=== PATIENT | male | born 1970 | race American Indian/Alaskan Native ===

== ENCOUNTER 2016-12-27 17:44 | Observation (INO) | payer MEDICAID ==
--- NOTE | 2016-12-27 18:36 | C.PDOC ---
History Of Present Illness 46 year old male presents to the ED with complaints of sudden onset of chest pressure "around the heart" while walking with diaphoresis. Patient notes slight SOB, upon symptoms he sat and called 911, and pain slowly began to resolve post meds. He denies any prior history of chest pain, medical problem , heart conditions, at this time. Time Seen by Provider: 12/27/16 18:24 Chief Complaint (Nursing): Chest Pain History Per: Patient History/Exam Limitations: no limitations Onset/Duration Of Symptoms: Hrs Current Symptoms Are (Timing): Still Present (slight chest pain) Quality: Pressure, "Pain" Associated Symptoms: Dyspnea, Diaphoresis. denies: Nausea, Syncope Past Medical History Reviewed: Historical Data, Nursing Documentation, Vital Signs Vital Signs: Last Vital Signs Temp 98.5 F 12/28/16 08:27 Pulse 58 L 12/28/16 08:27 Resp 20 12/28/16 08:27 BP 110/70 12/28/16 08:27 Pulse Ox 97 12/28/16 08:27 - Medical History PMH: No Chronic Diseases Family History: States: Unknown Family Hx - Social History Hx Tobacco Use: Yes Hx Alcohol Use: Yes Hx Substance Use: No Review Of Systems Constitutional: Negative for: Fever, Chills, Sweats Cardiovascular: Positive for: Chest Pain Respiratory: Positive for: Shortness of Breath (slight ) Gastrointestinal: Negative for: Nausea, Vomiting, Abdominal Pain, Diarrhea Musculoskeletal: Negative for: Neck Pain, Shoulder Pain, Back Pain Physical Exam - Physical Exam Appears: Non-toxic, No Acute Distress Skin: Warm, Dry Oral Mucosa: Moist Neck: Normal ROM, Supple Chest: Symmetrical, Tenderness (tenderness over left anterior chest wall ) Cardiovascular: Rhythm Regular, No Murmur Respiratory: No Rales, No Rhonchi, No Stridor, No Wheezing Gastrointestinal/Abdominal: Soft, No Tenderness, No Guarding Extremity: Normal ROM, No Pedal Edema Neurological/Psych: Oriented x3, Normal Speech, Normal Cognition ED Course And Treatment - Laboratory Results Result Diagrams: 12/27/16 18:40 12/27/16 18:40 ECG: Interpreted By Me ECG Rhythm: Sinus Rhythm ECG Interpretation: No Acute Changes Interpretation Of ECG: voltage for LVH Rate From EC O2 Sat by Pulse Oximetry: 100 - Radiology CXR: Interpreted by Me CXR Interpretation: Yes: No Acute Disease Medical Decision Making Medical Decision Making: CP resolved while in the ED Labs cxr unremarkable but EKG with LVH, BP ok in ED but post ntg In view of hx age smoking observation vs op w/u discussed with pt Plan observation, discussed with dr Mills who agrees with plan Disposition - Disposition Disposition: HOSPITALIZED Disposition Time: 00:00 Condition: GOOD - Clinical Impression Clinical Impression: Chest pain - Scribe Statement The provider has reviewed the documentation as recorded by the Scribleonie Palomares All medical record entries made by the Venkateshibleonie were at my direction and personally dictated by me. I have reviewed the chart and agree that the record accurately reflects my personal performance of the history, physical exam, medical decision making, and the department course for this patient. I have also personally directed, reviewed, and agree with the discharge instructions and disposition. Decision To Admit - Pt Status Changed To: Hospital Disposition Of: Observation - . Bed Request Type: Telemetry Admitting Physician: Karl Jacobson Patient Diagnosis: Chest pain
[2016-12-27 18:42] LABS: BASO % 0.4 % (0.0-2.0); EOS % 0.7 % (0.0-4.0); HEMATOCRIT 40.8 % (35.0-51.0); LYMPH # 1.2 K/uL (1.0-4.3); LYMPH % 17.7 % (20.0-40.0); MEAN CELL VOLUME 91.5 fL (80.0-94.0); MEAN CORPUSCULAR HEMOGLOBIN 30.3 pg (27.0-31.0); MEAN CORPUSCULAR HGB CONC 33.1 g/dL (33.0-37.0); MEAN PLATELET VOLUME 8.5 fL (7.2-11.7); MONO # 0.5 K/uL (0.0-0.8); MONO % 6.9 % (0.0-10.0); RED CELL DISTRIBUTION WIDTH 13.9 % (11.5-14.5); WHITE BLOOD COUNT 6.8 K/uL (4.8-10.8)
[2016-12-27 18:53] LABS: CHLORIDE 103 mmol/L (98-107)
[2016-12-27 18:54] LABS: POTASSIUM 3.7 mmol/L (3.6-5.2); SODIUM 142 mmol/L (132-148)
[2016-12-27 18:56] LABS: ALB/GLOB RATIO 1.6 (1.0-2.1); AST/SGOT 31 U/L (17-59); BILIRUBIN,TOTAL 0.9 mg/dL (0.2-1.3); BLOOD UREA NITROGEN 10 mg/dL (9-20); CARBON DIOXIDE 26 mmol/L (22-30); GFR AFRICAN-AMERICAN > 60; TOTAL PROTEIN 7.3 g/dL (6.3-8.3)
[2016-12-27 18:57] LABS: ALKALINE PHOSPHATASE 55 U/L (38-126); ALT/SGPT 38 U/L (21-72); CALCIUM 8.9 mg/dl (8.6-10.4); GLUCOSE,RANDOM 92 mg/dL (75-110)
[2016-12-27] MEDS ORDERED: Nitroglycerin 2% Ointment Foilpak UD TOP PRN (21:00)
--- NOTE | 2016-12-27 21:29 | RAD ---
HISTORY: chest pain COMPARISON: None available. TECHNIQUE: Chest PA and lateral FINDINGS: LUNGS: Hyperinflation. No focal consolidation. Please note that chest x-ray has limited sensitivity for the detection of pulmonary masses. PLEURA: No significant pleural effusion identified. No definite pneumothorax . CARDIOVASCULAR: The cardiomediastinal silhouette appears within normal limits of size. OSSEOUS STRUCTURES: No acute osseous abnormality identified. VISUALIZED UPPER ABDOMEN: Unremarkable. OTHER FINDINGS: None. IMPRESSION: Hyperinflation. No focal consolidation, significant pleural effusion, or definite pneumothorax identified.
--- NOTE | 2016-12-28 03:30 | CP.PCM.CON ---
History of Present Illness - History of Present Illness History of Present Illness: 46 year old male with no cardiac history felt chest pressue with diaphoresis and came to the emergency depart ment. Pt denied sob ,nausea sob ekg unremarkable now no chest pain Review of Systems - Review of Systems Systems not reviewed;Unavailable: Acuity of Condition - Constitutional Constitutional: absent: Sleep Apnea - EENT Eyes: absent: Change in Vision Nose/Mouth/Throat: absent: Nasal Discharge - Cardiovascular Cardiovascular: absent: Chest Pain - Respiratory Respiratory: absent: Dyspnea on Exertion - Gastrointestinal Gastrointestinal: absent: Abdominal Pain - Genitourinary Genitourinary: absent: Dysuria - Musculoskeletal Musculoskeletal: absent: Back Pain - Integumentary Integumentary: absent: Dry Skin - Neurological Neurological: absent: Abnormal Hearing - Psychiatric Psychiatric: absent: Anxiety - Endocrine Endocrine: absent: Fatigue - Hematologic/Lymphatic Hematologic: absent: Easy Bleeding Past Patient History - Past Medical History & Family History Past Medical History?: Yes - Past Social History Smoking Status: Current Some Days Smoker - INTEGUMENTARY Hx Eczema: Yes - MUSCULOSKELETAL/RHEUMATOLOGICAL Hx Falls: No - PSYCHIATRIC Hx Substance Use: No - SURGICAL HISTORY Hx Surgeries: No Other/Comment: Lymph node biopsy 15 years ago - ANESTHESIA Hx Anesthesia: Yes Hx Anesthesia Reactions: No Hx Malignant Hyperthermia: No Has any member of the family had a problem w/ anesthesia?: No Meds Allergies/Adverse Reactions: Allergies Allergy/AdvReac Type Severity Reaction Status Date / Time No Known Allergies Allergy Unverified 12/27/16 17:56 - Medications Medications: Current Medications Aspirin (Aspirin) 325 mg PO DAILY [facility] Metoprolol Tartrate (Lopressor) 25 mg PO BID [facility] Nitroglycerin (Nitro-Bid 2% Oint) 1 ea TOP Q6H PRN PRN Reason: Other Last Admin: 12/27/16 22:42 Dose: 1 ea Physical Exam - Constitutional Appears: Well - Head Exam Head Exam: NORMOCEPHALIC - Eye Exam Eye Exam: Normal appearance - ENT Exam ENT Exam: Mucous Membranes Moist - Respiratory Exam Respiratory Exam: NORMAL BREATHING PATTERN - Cardiovascular Exam Cardiovascular Exam: REGULAR RHYTHM - GI/Abdominal Exam GI & Abdominal Exam: Normal Bowel Sounds - Exam External exam: NORMAL EXTERNAL EXAM - Extremities Exam Extremities exam: Positive for: normal inspection - Neurological Exam Neurological exam: Alert - Psychiatric Exam Psychiatric exam: Normal Mood - Skin Skin Exam: Warm Results - Vital Signs Recent Vital Signs: Last Vital Signs Temp 98.1 F 12/27/16 23:45 Pulse 58 L 12/27/16 23:58 Resp 20 12/27/16 23:45 BP 100/57 L 12/27/16 23:45 Pulse Ox 96 12/27/16 23:45 - Labs Result Diagrams: 12/27/16 18:40 12/27/16 18:40 Assessment & Plan (1) Chest pressure Assessment and Plan: We will get cardiac enzymes x 3 echo atypical chest pressue resolved now Status: Acute
[2016-12-28 04:17] LABS: THYROID STIMULATING HORMONE 1.57 mIU/L (0.46-4.68)
[2016-12-28 07:59] LABS: URINE BILIRUBIN NEGATIVE (NEGATIVE); URINE BLOOD NEGATIVE (NEGATIVE); URINE COLOR Yellow (YELLOW); URINE GLUCOSE (UA) NORMAL (Normal); URINE KETONE TRACE mg/dL (NEGATIVE); URINE LEUKOCYTE ESTERASE NEG Leu/uL (Negative); URINE PROTEIN NEGATIVE (NEGATIVE); WBC URINE 1 /hpf (0-5)
--- NOTE | 2016-12-28 11:33 | CP.PCM.PN ---
Subjective - Date & Time of Evaluation Date of Evaluation: 12/28/16 Time of Evaluation: 11:00 - Subjective Subjective: H&P dictated #[id number] Objective - Vital Signs/Intake and Output Vital Signs (last 24 hours): Temp Pulse Resp BP Pulse Ox 98.5 F 58 L 20 110/70 97 12/28/16 08:27 12/28/16 08:27 12/28/16 08:27 12/28/16 08:27 12/28/16 08:27 Intake and Output: 12/28/16 12/28/16 06:59 18:59 Intake Total 240 Balance 240 - Medications Medications: Current Medications Aspirin (Aspirin) 325 mg PO DAILY [facility] Last Admin: 12/28/16 11:02 Dose: 325 mg Metoprolol Tartrate (Lopressor) 25 mg PO BID [facility] Last Admin: 12/28/16 11:02 Dose: Not Given Nitroglycerin (Nitro-Bid 2% Oint) 1 ea TOP Q6H PRN PRN Reason: Other Last Admin: 12/27/16 22:42 Dose: 1 ea
[2016-12-28 12:48] LABS: CHOLESTEROL 147 mg/dL (0-199)
--- NOTE | 2016-12-28 16:55 | HP ---
CHIEF COMPLAINT: Retrosternal chest pain started while he was walking, got better with nitroglycerin. HISTORY OF PRESENT ILLNESS: The patient is a 46-year-old male with no significant past medical history other than smoking and no other family history of coronary artery disease, came in to the ED with complaints of left-sided chest pain associated with shortness of breath as he was walking yesterday. He denied any other associated symptoms of dizziness, nausea, vomiting, diaphoresis. Denied any radiation of the pain. The pain was squeezing in nature, nonradiating and it was 5/10 when he had this pain. He also felt anxious and nervous as he has been going through some stressful situation in his life as he used to live [place]. He is not following the rules, so he was not allowed to go back to the penitentiary. He has been walking longer hours, lifting heavy weights. He has been staying with a partner, which has not been working out well. He is stressed out about his living situation and work. When he had these symptoms, he went into a restaurant and rested. His pain persisted and increased at which point 911 was called and patient was given nitroglycerin with which his symptoms improved. He was brought into the Emergency Room. In the ED, he remained chest pain free. When I examined him, he denies any headache, dizziness. Denies any chest pain, shortness of breath or wheezing. Denies any nausea, vomiting, abdominal pain, diarrhea or constipation. Denies any urinary complaints. Denies any leg pains or leg cramps. Denies any other neurologic symptoms. PAST MEDICAL HISTORY: Denies any past medical history. PAST SURGICAL HISTORY: He underwent a biopsy of a lymph node many years ago, which was negative. FAMILY HISTORY: Hypertension in father. Mother is healthy. Grandmother from CVA. PERSONAL HISTORY: He is single, no children. Lives in penitentiary. SOCIAL HISTORY: Denies any drug abuse. Drinks alcohol socially. He smokes cigars 2-3 per day. ALLERGIES: No known drug allergies. MEDICATIONS AT HOME: None. REVIEW OF SYSTEMS: As described in history of present illness. All other systems reviewed and were found to be negative. PHYSICAL EXAMINATION: GENERAL: A young male lying in bed in no acute distress. VITAL SIGNS: Blood pressure 110/70, pulse 58, respirations 20, temperature 98.3 degrees Fahrenheit, O2 sats 97% on room air. HEENT: Pupils equal, round, reacting to light and accommodation. Extraocular muscles intact. No icterus, no pallor, no oral thrush. No pharyngeal congestion. NECK: Supple. No JVD, no thyromegaly. CHEST: Moving equally bilaterally on respiration. LUNGS: Bilateral vesicular breath sounds. No wheezes or rhonchi. CARDIOVASCULAR: S1, S2 present, regular. ABDOMEN: Soft, nontender. Bowel sounds present. No guarding, no rigidity, no rebound tenderness noted. CENTRAL NERVOUS SYSTEM: Alert, awake, oriented x 3. No focal deficits noted. EXTREMITIES: No edema. Palpable peripheral pulses. LABORATORY DATA: Labs done from the ED: WBC 6.8, hemoglobin 13.5, hematocrit 40.8, platelets 166. Sodium 142, potassium 3.7, chloride 103, bicarbonate 26, BUN 10, creatinine 1.0, glucose 92, calcium 8.9, total bilirubin is 0.9, AST 31 , ALT 38, alkaline phosphatase 55. CPK 278, troponin less than 0.01, total protein 7.3, albumin 4.5. TSH 1.57. UA specific gravity 1.025, pH 6.0, otherwise negative. EKG consistent with normal sinus rhythm, LVH. Chest x-ray : Hyperinflation, no focal consolidation, significant pleural effusion, no definite pneumothorax identified. ASSESSMENT AND PLAN: A young male with no significant past medical history who has been undergoing stressful situations with his living conditions, has been working more, lifting heavy weights, came into the Emergency Room with sudden onset of retrosternal chest pressure associated with anxiety and shortness of breath and questionable diaphoresis. All the symptoms got better after rest and after getting nitroglycerin and the patient is being admitted for further management. Chest pain in a patient with no significant risk factors other than smoking. Rule out secondary to anxiety, rule out acute coronary syndrome, rule out other cardiac causes. PLAN: The patient is being admitted to cardiac telemetry. We will do serial cardiac enzymes and serial EKGs. We will check echocardiogram. We will check lipid profile. We will obtain cardiology evaluation. We will give aspirin 325 mg p.o. daily, Lopressor 25 mg p.o. q. 12 hours with holding parameters. Follow up with cardiology. We will add further recommendation as his clinical course progresses. Karl Jacobson MD cc: [id number] TT: 12/28/2016 16:55:21 [facility] # [id number] dn MTDD
[2016-12-29 01:12] VITALS: RESP 20
[2016-12-29] MEDS ORDERED: Enoxaparin 40 mg Syringe SC SCH (10:00)
--- NOTE | 2016-12-29 10:44 | CARD ---
APPROVED REPORT EXAM: Two-dimensional and M-mode echocardiogram with Doppler and color Doppler. Other Information Quality : GoodRhythm : NSR INDICATION Chest Pain RISK FACTORS Hypertension Hyperlipidemia M-Mode DIMENSIONS RVDd2.28 (2.1-3.2cm)Left Atrium (MM)3.22 (2.5-4.0cm) IVSd1.14 (0.7-1.1cm)Aortic Root2.64 (2.2-3.7cm) LVDd4.75 (4.0-5.6cm)Aortic Cusp Exc.2.25 (1.5-2.0cm) PWd1.20 (0.7-1.1cm)FS (%) 29 % LVDs3.35 (2.0-3.8cm)LVEF (%)56 (>50%) Aortic Valve AoV Peak Kvfdgbrx108.6cm/Griselda Peak GR.5mmHg Mitral Valve MV E Weykjduq68.5cm/sMV A Syhxdgjs80.9cm/sE/A ratio3.0 TDI E/Lateral E'0.0E/Medial E'0.0 Tricuspid Valve TR Peak Fsygmosy990sx/sTR Peak Gr.[id number] LEFT VENTRICLE The left ventricle is normal size. There is normal left ventricular wall thickness. The left ventricular function is normal. The left ventricular ejection fraction is within the normal range. The Ejection Fraction is >55%. No regional wall motion abnormalities noted. The left ventricular diastolic function is normal. No left ventricle thrombus noted on this study. There is no ventricular septal defect visualized. There is no left ventricular aneurysm. There is no mass noted in the left ventricle. RIGHT VENTRICLE The right ventricle is normal size. There is normal right ventricular wall thickness. The right ventricular systolic function is normal. ATRIA The left atrium size is normal. The right atrium size is normal. The interatrial septum is intact with no evidence for an atrial septal defect. AORTIC VALVE The aortic valve is normal in structure and function. There is trace aortic regurgitation. There is no aortic valvular stenosis. There is no aortic valvular vegetation. MITRAL VALVE The mitral valve is normal in structure and function. There is no evidence of mitral valve prolapse. There is no mitral valve stenosis. There is no mitral valve regurgitation noted. TRICUSPID VALVE The tricuspid valve is normal in structure and function. There is trace tricuspid regurgitation. Right ventricular systolic pressure is estimated at 30-40 mmHg. There is mild pulmonary hypertension. There is no tricuspid valve prolapse or vegetation. There is no tricuspid valve stenosis. PULMONIC VALVE The pulmonary valve is normal in structure and function. There is no pulmonic valvular regurgitation. There is no pulmonic valvular stenosis. GREAT VESSELS The aortic root is normal in size. The ascending aorta is normal in size. The pulmonary artery is normal. The IVC is normal in size and collapses >50% with inspiration. PERICARDIAL EFFUSION The pericardium appears normal. There is no pleural effusion. <Conclusion> The left ventricular ejection fraction is within the normal range. The Ejection Fraction is >55%. There is trace aortic regurgitation. There is trace tricuspid regurgitation. Right ventricular systolic pressure is estimated at 30-40 mmHg. There is mild pulmonary hypertension.
--- NOTE | 2016-12-29 12:16 | CP.PCM.PN ---
Subjective - Date & Time of Evaluation Date of Evaluation: 12/29/16 Time of Evaluation: 12:10 - Subjective Subjective: discharge summary dictated # [id number] Objective - Vital Signs/Intake and Output Vital Signs (last 24 hours): Temp Pulse Resp BP Pulse Ox 98.3 F 52 L 20 92/53 L 97 12/29/16 09:01 12/29/16 09:01 12/29/16 09:01 12/29/16 09:01 12/29/16 09:01 - Medications Medications: Current Medications Aspirin (Aspirin) 325 mg PO DAILY [facility] Last Admin: 12/29/16 10:23 Dose: 325 mg Enoxaparin Sodium (Lovenox) 40 mg SC DAILY [facility] Last Admin: 12/29/16 10:23 Dose: 40 mg Metoprolol Tartrate (Lopressor) 25 mg PO BID [facility] Last Admin: 12/29/16 10:25 Dose: Not Given Nitroglycerin (Nitro-Bid 2% Oint) 1 ea TOP Q6H PRN PRN Reason: Other Last Admin: 12/27/16 22:42 Dose: 1 ea
--- NOTE | 2016-12-29 12:43 | CARD ---
APPROVED REPORT EKG Measurement Heart [id number] <Conclusion> Sinus rhythm with occasional premature ventricular complexes Voltage criteria for left ventricular hypertrophy Abnormal ECG
--- NOTE | 2016-12-29 13:36 | CP.PCM.PN ---
<GildardoVini - Last Filed: 12/29/16 18:08> Subjective - Date & Time of Evaluation Date of Evaluation: 12/29/16 Time of Evaluation: 13:29 - Subjective Subjective: Cardiology Progress Note Dr. Wright Patient seen and examined at the bedside. No acute distress. No acute events overnight. Nursing staff reports no issues. The patient is resting comfortably in bed this morning. The patient reports resolution of his chest pain. The patient denies all cardiopulmonary complaints. 12 point review of system was completed, and the patient denies all present complaints. Objective - Vital Signs/Intake and Output Vital Signs (last 24 hours): Temp Pulse Resp BP Pulse Ox 98.3 F 52 L 20 92/53 L 97 12/29/16 09:01 12/29/16 09:01 12/29/16 09:01 12/29/16 09:01 12/29/16 09:01 - Medications Medications: Current Medications Aspirin (Aspirin) 325 mg PO DAILY [facility] Last Admin: 12/29/16 10:23 Dose: 325 mg Enoxaparin Sodium (Lovenox) 40 mg SC DAILY [facility] Last Admin: 12/29/16 10:23 Dose: 40 mg Metoprolol Tartrate (Lopressor) 25 mg PO BID [facility] Last Admin: 12/29/16 10:25 Dose: Not Given Nitroglycerin (Nitro-Bid 2% Oint) 1 ea TOP Q6H PRN PRN Reason: Other Last Admin: 12/27/16 22:42 Dose: 1 ea - Constitutional Appears: Well, No Acute Distress - Head Exam Head Exam: ATRAUMATIC, NORMAL INSPECTION, NORMOCEPHALIC - Eye Exam Eye Exam: EOMI, Normal appearance Pupil Exam: NORMAL ACCOMODATION - ENT Exam ENT Exam: Mucous Membranes Moist, Normal Exam - Neck Exam Neck Exam: Full ROM, Normal Inspection. absent: Lymphadenopathy - Respiratory Exam Respiratory Exam: Clear to Ausculation Bilateral, NORMAL BREATHING PATTERN. absent: Rhonchi, Wheezes - Cardiovascular Exam Cardiovascular Exam: REGULAR RHYTHM, RRR, +S1, +S2. absent: Diastolic murmur, Murmur - GI/Abdominal Exam GI & Abdominal Exam: Soft, Normal Bowel Sounds. absent: Firm, Guarding, Rigid, Tenderness - Extremities Exam Extremities Exam: Full ROM, Normal Capillary Refill, Normal Inspection. absent : Joint Swelling, Pedal Edema - Back Exam Back Exam: NORMAL INSPECTION. absent: CVA tenderness (L), CVA tenderness (R) - Neurological Exam Neurological Exam: Alert, Awake, CN II-XII Intact, Oriented x3 - Skin Skin Exam: Dry, Intact, Normal Color, Warm Assessment and Plan (1) Chest pain Assessment & Plan: Troponin negative x 3 12/28/16 Echo- LV EF 56%, mild pulmonary hypertension, no regional wall abnormalities 12/27/16 EKG- normal sinus rhythm, physiologic axis, normal intervals, no ST or T wave abnormalities, voltage criteria for LVH, PVCs noted 12/27/16 CXR- no acute pulmonary pathology Hold beta roro if pulse <60bpm or SBP <100mmHg Patient was recommended to follow up with Dr. Wright in his office/clinic for further cardiac follow up No cardiac intervention at this time Case Discussed with Dr. Kyle Ewing PGY1 Status: e <Fredo Wright - Last Filed: 01/28/17 10:17> Objective - Vital Signs/Intake and Output Vital Signs (last 24 hours): Temp Pulse Resp BP Pulse Ox 98 F 53 L 20 102/63 98 12/29/16 16:00 12/29/16 16:00 12/29/16 16:00 12/29/16 16:00 12/29/16 16:00 Attending/Attestation - Attestation I have personally seen and examined this patient.: Yes I have fully participated in the care of the patient.: Yes I have reviewed all pertinent clinical information, including history, physical exam and plan: Yes Notes (Text): 01/28/17 10:16 Pt no issues overnight echo nl follow up as outpt
--- NOTE | 2016-12-29 16:27 | CP.PCM.PN ---
Subjective - Date & Time of Evaluation Date of Evaluation: 12/29/16 Time of Evaluation: 16:28 - Subjective Subjective: alert and orientedx3, NAD. Objective - Vital Signs/Intake and Output Vital Signs (last 24 hours): Temp Pulse Resp BP Pulse Ox 98.3 F 52 L 20 92/53 L 97 12/29/16 09:01 12/29/16 09:01 12/29/16 09:01 12/29/16 09:01 12/29/16 09:01 - Medications Medications: Current Medications Aspirin (Aspirin) 325 mg PO DAILY [facility] Last Admin: 12/29/16 10:23 Dose: 325 mg Enoxaparin Sodium (Lovenox) 40 mg SC DAILY [facility] Last Admin: 12/29/16 10:23 Dose: 40 mg Metoprolol Tartrate (Lopressor) 25 mg PO BID [facility] Last Admin: 12/29/16 10:25 Dose: Not Given Nitroglycerin (Nitro-Bid 2% Oint) 1 ea TOP Q6H PRN PRN Reason: Other Last Admin: 12/27/16 22:42 Dose: 1 ea Assessment and Plan - Assessment and Plan (Free Text) Assessment: Patient is seen and examined. Denies sob or chest pains. Cleared by cardiology, ruled out RI. Discharge home by DR Cramer, advised to follow up with PMD and cardiology for further work ups.
[2016-12-29 17:07] VITALS: BP 102/63; PULSE 53; TEMP 98; O2SAT 98
--- NOTE | 2016-12-29 21:01 | DS ---
DISCHARGE DIAGNOSES: Atypical chest pain, anxiety. HISTORY OF PRESENT ILLNESS: The patient is a 46-year-old male with no significant past medical histo ry, admitted to the hospital with left-sided chest pain associated with anxiety and patient was admit rodrigo for chest pain, rule out myocardial infarction. Today, the patient is feeling much better. Felix es any headache, dizziness. Denies any chest pain, shortness of breath or wheezing. Denies any naus ea, vomiting, abdominal pain, diarrhea or constipation. Denies any urinary complaints. Denies any l eg pains or leg cramps. Denies any other neurologic symptoms. Other systems reviewed and were found to be negative. PHYSICAL EXAMINATION: GENERAL: Young male lying in bed in no acute distress. VITAL SIGNS: Blood pressure 102/63, pulse 53, respirations 20, temperature 98 degrees Fahrenheit, O2 sat is 98% on room air. HEENT: Pupils equal, round, reacting to light and accommodation. Extraocular muscles intact. No ic terus, no pallor. No oral thrush. No pharyngeal congestion. No nasal congestion. NECK: Supple. No JVD, no thyromegaly. CHEST: Moving equally bilaterally on respiration. LUNGS: Bilateral vesicular breath sounds. No wheezing, no rhonchi. CARDIOVASCULAR: S1, S2 present, regular. ABDOMEN: Soft, nontender. Bowel sounds present. No guarding, no rigidity, no rebound tenderness no rodrigo. CENTRAL NERVOUS SYSTEM: Alert, awake, oriented x 3. No focal deficits noted. EXTREMITIES: No edema. Palpable peripheral pulses. LABORATORY: Improved triglycerides 44, cholesterol 147, LDL 51, HDL 77, and TSH 1.57. UA negative, cardiac enzymes x 3 negative. WBC 6.8, hemoglobin 13.5, hematocrit 40.8, platelets 166. Sodium 142, potassium 3.7, chloride 103, bicarbonate 26, BUN 10, creatinine 1.0, glucose 92, calcium 8.9, total bilirubin is 0.9, AST 31, ALT 38, alkaline phosphatase 55, total protein 7.3, albumin 4.5, globulin 2 .90. Echo with normal EF. Chest x-ray: Negative. HOSPITAL COURSE: The patient was admitted to the hospital. The patient was ruled out for acute OH. No new EKG changes. Three sets of cardiac enzymes negative. Echocardiogram with normal LV function . The patient was evaluated by cardiology and the patient is cleared by cardiology for discharge to be followed up in his office for further cardiac workup as outpatient. As the patient is feeling muc h better and hemodynamically stable, cleared by cardiology, the patient is being discharged. I advis ed patient to follow up with PMD and follow up with cardiology. CONDITION UPON DISCHARGE: The patient is alert, awake, oriented x 3 and hemodynamically stable at th e time of discharge. DISCHARGE INSTRUCTIONS: Follow up with PMD, follow up with cardiology for further cardiac workup as outpatient. DISCHARGE MEDICATIONS: None. ACTIVITY: As tolerated. DIET: Heart healthy diet. Karl Jacobson MD cc: [id number] TT: 12/29/2016 21:00:28 jn
== END 2016-12-29 18:10 | disposition home or self-care (01) ==
LOC: C.ER 17:44 → C.9E 20:24 → C.6T 20:35
PROVIDERS: ADMIT Internal Medicine; ATTEND Internal Medicine
DX: R07.89 Other chest pain (principal); F41.9 Anxiety disorder, unspecified; Z68.23 Body mass index [BMI] 23.0-23.9, adult; F17.290 Nicotine dependence, other tobacco product, uncomplicated
CPT/HCPCS: 36415; 71020; 80053; 80061; 81001; 82948; 84443; 84484; 85025; 93005; 93306; 99285; G0378; J1650

== ENCOUNTER 2017-08-07 16:06 | Emergency (ER) | payer MEDICAID, OTHER ==
[2017-08-07] MEDS ORDERED: Epinephrine /Lidocaine HCL 1:100,000/2% 30 ml INJ PRN (18:16)
[2017-08-07] MEDS ORDERED: Lidocaine 2% w Epi 1:100,000 Inj IJ ONE (19:29)
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
[2017-08-07 20:28] VITALS: BP 115/71; PULSE 94; RESP 16; TEMP 97.8
[2017-08-07 20:39] VITALS: O2SAT 100
[2017-08-07] MEDS ORDERED: Bacitracin 500 Units/gm Oint Foilpak UD ONE (20:41)
--- NOTE | 2017-08-07 21:24 | PCM.PROC ---
Procedures Attestation:: I certify that I have explained the specified Operation(s) or Procedure(s), risks, benefits and reasonable alternatives to the Patient and/or other person responsible. The opportunity was given to ask questions and all questions answered - Laceration lidocaine 1% involves muscle layer contaminated deep structures intact scalp 6-0 vicryl local infiltration simple, interrupted simple, interrupted simple, interrupted Site: scalp, face Side (if applicable): left Size (cm): 4 Anesthesia used: lidocaine 2%, with EPI Anesthesia technique: local infiltration Amount (mLs): 8 Pre-repair: wound explored, irrigated extensively Size: 6-0 Number of sutures: 6 Technique: simple, interrupted Subcutaneous layer closed with: vicryl Size: 6-0 Number of sutures: 11 Technique: simple, interrupted Muscle layer closed with: other
--- NOTE | 2017-08-10 09:03 | CARD ---
APPROVED REPORT EKG Measurement Heart [id number] <Conclusion> Sinus tachycardia with occasional premature ventricular complexes Right atrial enlargement Minimal voltage criteria for LVH, may be normal variant Borderline ECG
== END 2017-08-07 21:22 | disposition home or self-care (01) ==
LOC: C.ER 16:06
DX: S01.01XA Laceration without foreign body of scalp, initial encounter (principal); S01.312A Laceration without foreign body of left ear, initial encounter; S01.81XA Laceration without foreign body of other part of head, initial encounter; Y08.89XA Assault by other specified means, initial encounter